=== PATIENT | male | born 1985 | race Caucasian/White ===

== ENCOUNTER 2018-09-28 21:38 | Emergency (ER) | payer SELFPAY ==
[2018-09-28] MEDS ORDERED: Lidocaine 1% with EPINEPHrine 1:100,000 20 ML MDV INJECT ONE (22:01)
[2018-09-28] MEDS ORDERED: Bupivacaine 0.5% 10 ML SDV INJECT ONE (22:01)
--- NOTE | 2018-09-28 22:51 | EDM.PDOC ---
ED HPI GENERAL MEDICAL PROBLEM - General Chief Complaint: Laceration Stated Complaint: CUT LEFT HAND Time Seen by Provider: 09/28/18 21:49 Source of Information: Reports: Patient, RN Notes Reviewed History Limitations: Reports: No Limitations - History of Present Illness INITIAL COMMENTS - FREE TEXT/NARRATIVE: The patient states that he accidentally cut his left hand with a knife around 20 :30 this evening. He is otherwise uninjured. The patient is not sure when his last tetanus vaccination was. It may be as long as 10 years ago. The patient's lives in [facility], and comes to this area for work periodically. - Related Data Allergies Allergy/AdvReac Type Severity Reaction Status Date / Time No Known Allergies Allergy Verified 09/28/18 21:44 Home Meds: Home Meds . [Unable to Verify Home Med List] 09/28/18 [History] Past Medical History Psychiatric History: Reports: Depression - Past Surgical History Musculoskeletal Surgical History: Reports: Shoulder Surgery (right, one arthroscopic, one open) Social & Family History - Tobacco Use Smoking Status *Q: Former Smoker Years of Tobacco use: 13 Packs/Tins Daily: 1 Month/Year Tobacco Last Used: Quit 2010 - Caffeine Use Caffeine Use: Reports: Coffee - Alcohol Use Alcohol Use History: No - Recreational Drug Use Recreational Drug Use: Yes Drug Use in Last 12 Months: No Recreational Drug Type: Reports: Marijuana/Hashish (last smoked in 2002) - Living Situation & Occupation Living situation: Reports: , with Spouse, with Family (5 kids) Occupation: Employed (Drilling rigs) ED ROS GENERAL - Review of Systems Review Of Systems: ROS reveals no pertinent complaints other than HPI. ED EXAM, SKIN/RASH Exam: See Below Exam Limited By: No Limitations General Appearance: Alert, WD/WN, No Apparent Distress Extremities: Other (There is an approximately 3 cm linear laceration to the dorsal aspect of the thenar eminence of the left hand. No apparent tendinous or ligamentous injury. Neurovascular status of the left hand is intact.) ED SKIN PROCEDURES - Laceration/Wound Repair Left Hand Lac/Wound length In cm: 3.0 Appearance: Subcutaneous, Linear, Clean Distal NVT: Neuro & Vascular Intact, No Tendon Injury Anesthetic Type: Local Local Anesthesia - Lidocaine (Xylocaine): 1% with EPI (50:50 admixture) Local Anesthesia - Bupivicaine (Marcaine): 0.5% Plain (50:50 admixture) Local Anesthetic Volume: 2cc Skin Prep: Providone-Iodine (Betadine) Exploration/Debridement/Repair: Wound Explored, In a Bloodless Field, Explored to Base, No Foreign Material Found, Wound Margins Revised Closed with: Sutures Suture Size: 3-0 # of Sutures: 6 Suture Type: Nylon (Ethilon), Running Drain Placement: No Sterile Dressing Applied: Nurse Tetanus Status Addressed: Yes Complications: No Course - Vital Signs Last Recorded V/S: Last Vital Signs Temp 36.3 C 09/28/18 21:43 Pulse 95 09/28/18 21:43 Resp 16 09/28/18 21:43 BP 157/103 H 09/28/18 21:43 Pulse Ox 98 09/28/18 21:43 - Orders/Labs/Meds Meds: Medications Discontinued Medications Generic Name Dose Route Start Last Admin Trade Name Finesse PRN Reason Stop Dose Admin Bupivacaine HCl 10 ml 09/28/18 22:01 09/28/18 22:55 Sensorcaine-Mpf 0.5% INJECT 09/28/18 22:02 10 ml ONETIME ONE Administration Lidocaine/Epinephrine 20 ml 09/28/18 22:01 09/28/18 22:55 Xylocaine 1% With Epinephrine 1:100,000 INJECT 09/28/18 22:02 20 ml ONETIME ONE Administration - Re-Assessments/Exams Free Text/Narrative Re-Assessment/Exam: 09/28/18 22:46 The wound site was cleaned with Betadine, and a sterile field was prepared. The wound was anesthetized with a 50:50 admixture of lidocaine 1% with epinephrine and bupivacaine 0.5% without epinephrine. Good anesthesia was achieved. The wound was closed with 6 running sutures, using 3-0 Ethilon. The patient tolerated the procedure well. The wound will be dressed per Anahy RN. The patient received a tetanus vaccination during this ED visit. Departure - Departure Time of Disposition: 22:48 Disposition: Home, Self-Care 01 Condition: Good Clinical Impression: Laceration of left hand - Discharge Information *PRESCRIPTION DRUG MONITORING PROGRAM REVIEWED*: Not Applicable *COPY OF PRESCRIPTION DRUG MONITORING REPORT IN PATIENT SACHA: Not Applicable Instructions: Laceration Care, Adult, [id number] Referrals: PCP,None [Ordering Only Provider] - Forms: ED Department Discharge Additional Instructions: You were seen in the emergency room after accidentally cutting your left hand. Your wound was closed with 6 running sutures. Keep the wound clean with ordinary soap and water when you bathe. Pat the wound dry, then cover with a clean bandage, daily. If the bandage should get dirty or wet, re-clean the wound, dry it, and re- dress it with a clean dressing. Take [id number] Tylenol or ibuprofen as needed for discomfort. The sutures should be ready for removal by , 10/06/2018. The sutures can be removed at the walk-in clinic, by a nurse at your doctor's office, or in the ER. Do not try to remove the sutures yourself. If any other problems, including a concern about infection, such as with inordinate pain, swelling, redness, or drainage, please return to the ER for reevaluation.
== END 2018-09-28 22:58 | disposition home or self-care (01) ==
LOC: JD.ED 21:38
DX: S61.412A Laceration without foreign body of left hand, initial encounter (principal); Z87.891 Personal history of nicotine dependence; W26.0XXA Contact with knife, initial encounter
CPT/HCPCS: 12002; 99283; J3490; 99282

== ENCOUNTER 2018-10-06 18:15 | Emergency (ER) | payer SELFPAY | END 2018-10-06 18:28 | LOC: JD.ED 18:15 | DX: S61.412D Laceration without foreign body of left hand, subsequent encounter (principal); W26.0XXD Contact with knife, subsequent encounter ==